=== PATIENT | male | born 1960 | race African-American/Black ===

== ENCOUNTER 2024-08-30 19:14 | Emergency (ER) | payer OTHER ==
[2024-08-30] MEDS ORDERED: IBUPROFEN 400 MG TAB ONE (19:38)
--- NOTE | 2024-08-30 20:25 | RAD REPORT ---
EXAM: Hand Right 3 View HISTORY: PAIN COMPARISON: None FINDINGS: Bones: Possible fracture at the base of the fifth metacarpal. A small fragment is present between the fourth and fifth metacarpal heads. Small well-corticated ossific density along the ulnar aspect of the thumb metacarpal head may be a remote fracture and is of doubtful acute significance. Alignment:Dislocated fifth digit at the level of the carpometacarpal joint. The dislocation is in the volar and lateral direction. Degenerative changes:None significant. Other: Soft tissue swelling along the ulnar aspect of the hand. IMPRESSION: Fifth metacarpal dislocation with questionable small fracture fragment off of the fifth metacarpal izzy hirsch.
[2024-08-30] MEDS ORDERED: LIDOCAINE 1% 20 ML MDV ONE (20:42)
--- NOTE | 2024-08-30 22:07 | RAD REPORT ---
EXAM: Hand Right 3 View HISTORY: after reduction metacarpal COMPARISON: None FINDINGS: Relocated fifth metacarpal however there is a fracture seen on one view at the metacarpal base which has intra-articular extension. IMPRESSION: Relocated fifth metacarpal. Metatarsal head fracture present with intra-articular extension.
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
--- NOTE | 2024-08-30 22:32 | EDPHYS ---
Physician Documentation [facility] Name: Angel Salas Age: 64 yrs Sex: Male : 1960 Arrival Date: 08/30/2024 Time: 19:14 Bed DX4 Private MD: ED Physician Bj Whittaker HPI: 08/30 20:00 This 64 yrs old Black Male presents to ER via Ambulatory with complaints of Hand Injury.sp4 08/31 06:17 58-year-old male presents with acute injury to the right hand. Patient states he fell sp4 forward slid and caused deformity to the right hand ulnar side.. Historical: - Allergies: 08/30 19:38 No Known Allergies; bm8 - Home Meds: 19:38 Unable to obtain [Active]; bm8 - PMHx: 19:38 Hypertensive disorder; Hypercholesterolemia; Diabetes mellitus; bm8 - PSHx: 19:38 left orbital fracture repair; right leg repair; veins; left shoulder reconstruction; bm8 - Immunization history:: Adult Immunizations up to date. - Infectious Disease History:: Denies. - Social history:: Smoking status: Patient denies any tobacco usage or history of. - Family history:: not pertinent. ROS: 08/31 06:17 Constitutional: Negative for fever, chills, and weight loss, positive right hand pain sp4 positive right hand injury All other systems are negative, Exam: 06:17 Constitutional: This is a well developed, well nourished patient who is awake, alert, sp4 and in no acute distress. Head/Face: Normocephalic, atraumatic. Eyes: Pupils equal round and reactive to light, extra-ocular motions intact. Lids and lashes normal. Conjunctiva and sclera are not injected. Cornea within normal limits. Periorbital areas with no swelling, redness, or edema. ENT: Nares patent. No nasal discharge, no septal abnormalities noted. Tympanic membranes are normal and external auditory canals are clear. Oropharynx with no redness, swelling, or masses, exudates, or evidence of obstruction, uvula midline. Mucous membranes moist. Neck: Trachea midline, no thyromegaly or masses palpated, and no cervical lymphadenopathy. Supple, full range of motion without nuchal rigidity, or vertebral point tenderness. Chest/axilla: Normal chest wall appearance and motion. Nontender with no deformity. No lesions are appreciated. Cardiovascular: Regular rate and rhythm with a normal S1 and S2. No gallops, murmurs, or rubs. Normal PMI, no JVD. No pulse deficits. Respiratory: Lungs have equal breath sounds bilaterally, clear to auscultation and percussion. No rales, rhonchi or wheezes noted. No increased work of breathing, no retractions or nasal flaring. Abdomen/GI: Soft, with normal bowel sounds. No distension or tympany. No guarding or rebound. No evidence of tenderness throughout. Back: No spinal tenderness. No costovertebral tenderness. Skin: Warm, dry with normal turgor. Normal color with no rashes, no lesions, and no evidence of cellulitis. MS/ Extremity: Pulses equal, no cyanosis. Neurovascular intact. Full, normal range of motion. Positive right hand deformity right base of the metacarpal , no sign of open fracture. Neuro: Awake and alert, GCS 15, oriented to person, place, time, and situation. Cranial nerves II-XII grossly intact. Motor strength 5/5 in all extremities. Sensory grossly intact. Psych: Awake, alert, with orientation to person, place and time. Behavior, mood, and affect are within normal limits Vital Signs: 08/30 19:37 BP 117 / 70; Pulse 87; Resp 18; Temp 97.8; Pulse Ox 98% ; Weight 104.33 kg; Height 5 bm8 ft. 7 in. ; Pain 5/10; 22:37 BP 115 / 70; Pulse 85; Resp 19; Temp 97.8; Pulse Ox 100% ; Pain 0/10; bm8 19:37 Body Mass Index 36.02 (104.33 kg, 170.18 cm) bm8 19:37 Pain Scale: Adult bm8 22:37 Pain Scale: Adult bm8 [place] Coma Score: 22:37 Eye Response: spontaneous(4). Motor Response: obeys commands(6). Verbal Response: bm8 oriented(5). Total: 15. 08/31 06:17 Eye Response: spontaneous(4). Motor Response: obeys commands(6). Verbal Response: sp4 oriented(5). Total: 15. Procedures: 08/30 22:28 Splinting: Splint applied to right wrist, right hand and palmar aspect of right forearm sp4 using Ortho 3D boot, Right forearm wrist and hand ulnar gutter splint with immobilization of her right fourth and fifth digits. applied by myself. post reduction film - reveals normal alignment, Examined by me, post splint application: neurovascular intact, 2+ distal pulses palpable, brisk capillary refill noted, Patient tolerated well. 22:37 Reduction: of the - Right hand Fifth carpometacarpal Joint Dislocation , using sp4 manipulation, Relocation with Lidocaine local anesthesia local -10 mL 1% lidocaine injected within proximity of right carpometacarpal joint, Immobilized with Ulnar gutter splint applied. Patient tolerated well. Post reduction film - reveals normal alignment. Right arm sling was provided. MDM: 20:01 Medical Screening Exam initiated sp4 21:51 ED course: RADIOLOGYSERVICES REPORT Name: KAYA SALAS Acct Number: [id number] :[id number] Age:64 Sex:M Ord Phys: George Bansal MD Unit Number: [id number] Prim Care Dr: Reji Perez MD Status: REG ER ER Exam Date: 08/30/24 EXAM: Hand Right 3 View HISTORY: PAIN COMPARISON: None FINDINGS: Bones: Possible fracture at the base of the fifth metacarpal. A small fragment is present between the fourth and fifth metacarpal heads. Small well-corticated ossific density along the ulnar aspect of the thumb metacarpal head may be a remote fracture and is of doubtful acute significance. Alignment:Dislocated fifth digit at the level of the carpometacarpal joint. The dislocation is in the volar and lateral direction. Degenerative changes:None significant. Other: Soft tissue swelling along the ulnar aspect of the hand. IMPRESSION: Fifth metacarpal dislocation with questionable small fracture fragment off of the fifth metacarpal head. . 22:37 ED course: After reduction - EXAM: Hand Right 3 View HISTORY: after reduction sp4 metacarpal COMPARISON: None FINDINGS: Relocated fifth metacarpal however there is a fracture seen on one view at the metacarpal base which has intra-articular extension. IMPRESSION: Relocated fifth metacarpal. Metatarsal head fracture present with intra-articular extension. . 08/31 06:19 Differential diagnosis: dislocation, closed fracture, contusion, abrasion, tendonitis. sp4 Data reviewed: vital signs, nurses notes, radiologic studies, plain films. Consideration of Admission/Observation Escalation of care including admission/observation considered. ED course: Right fifth carpometacarpal dislocation was reduced. Patient placed in a splint. Advised to see orthopedist.. 08/30 19:41 Order name: XRAY Hand RIGHT 3 View bm8 08/30 21:52 Order name: Hand Right 3 View XRAY sp4 Administered Medications: 08/30 19:44 Drug: Ibuprofen PO 800 mg PO once Route: PO; bm8 22:34 Follow up: Response: No adverse reaction lg3 22:34 Drug: Lidocaine Infiltration (1 %) 20 ml 20 ml Infiltration once; to bedside Volume: 20 lg3 ml; Route: Infiltration; 22:34 Follow up: Response: No adverse reaction lg3 Disposition Summary: 08/30/24 22:31 Discharge Ordered Problem: new sp4 Symptoms: have improved sp4 Condition: Stable sp4 Diagnosis - Other fracture of fifth metacarpal bone, right hand sp4 - Right fifth proximal metacarpal fracture, right fifth metacarpal dislocation, sp4 carpometacarpal dislocation Followup: sp4 - With: Lee De Leon MD - When: 5 - 6 days - Reason: Recheck today's complaints Discharge Instructions: - Discharge Summary Sheet sp4 - Metacarpal Fracture, [id number] sp4 Forms: - Patient Portal Instructions sp4 Prescriptions: - Ibuprofen 800 mg Oral Tablet - take 1 tablet ORAL route every 8 hours As needed take with food; 30 tablet; sp4 Refills: 0, Product Selection Permitted Signatures: Dispatcher [employer] EDBrionna Head RN RN lg3 Bj Whittaker MD MD sp4 Ralph Khan RN RN bm8 Corrections: (The following items were deleted from the chart) 20:07 Wrist Right 3 View+[email or web address] ordered. EDMS EDMS
[2024-08-31 03:21] VITALS: BP 115/70; TEMP 97.8; O2SAT 100
== END 2024-08-30 22:40 | disposition home or self-care (01) ==
LOC: ER 19:14
DX: S62.396A Other fracture of fifth metacarpal bone, right hand, initial encounter for closed fracture (principal); W18.30XA Fall on same level, unspecified, initial encounter
CPT/HCPCS: 73130 ×2; 99284; 26605; J2003